=== PATIENT | male | born 1960 | race Caucasian/White ===

== ENCOUNTER → 2024-11-10 12:38 | Outpatient (REF) | payer OTHER, SELFPAY | LOC: MRI 3T 12:38 | PROVIDERS: ATTENDING PHYSICIAN Urology | DX: C61 Malignant neoplasm of prostate (principal) | CPT/HCPCS: 72197; A9575 ==

== ENCOUNTER 2025-08-22 06:22 | Day surgery (SDC) | payer OTHER, SELFPAY | END 2025-08-22 09:06 | disposition home or self-care (01) | LOC: GI 06:22 | PROVIDERS: ATTENDING PHYSICIAN Internal Medicine; FAMILY PHYSICIAN Family Medicine | DX: Z12.11 Encounter for screening for malignant neoplasm of colon (principal); K64.8 Other hemorrhoids; K57.30 Diverticulosis of large intestine without perforation or abscess without bleeding; K63.5 Polyp of colon; D12.2 Benign neoplasm of ascending colon; D12.0 Benign neoplasm of cecum; D12.3 Benign neoplasm of transverse colon | CPT/HCPCS: 45390; 45385; 88305 ==